=== PATIENT | female | born 2005 | race Caucasian/White ===

== ENCOUNTER 2025-03-09 16:17 | Emergency (ER) | payer MEDICAID ==
[~2025-03-09] VITALS: Ht 177.8 cm; Wt 61.0 kg
[2025-03-09 16:19] VITALS: BP 120/79; PULSE 86; RESP 16; TEMP 37.4; O2SAT 100
[2025-03-09 17:17] LABS: BASOPHILS % 0.1 % (0.0-2.0); EOSINOPHILS % 2.9 % (0.0-5.0); HEMATOCRIT. 37.7 % (36.0-48.0); HEMOGLOBIN. 12.5 g/dL (12.0-16.0); LYMPHOCYTES % 22.4 % (20.0-50.0); MEAN CORPUSCULAR HEMOGLOBIN 29.6 pg (28.0-32.0); MEAN CORPUSCULAR HGB CONC 33.2 g/dL (31.0-37.0); MEAN CORPUSCULAR VOLUME 89.2 fL (81.0-99.0); MEAN PLATELET VOLUME 7.8 fl (7.4-10.4); MONOCYTES % 6.1 % (2.0-8.0); NEUTROPHILS % 68.5 % (40.0-76.0); PLATELET 297 x1000/uL (130-400); RED BLOOD CELL COUNT 4.23 mill/uL (4.2-5.4); RED CELL DISTRIBUTION WIDTH 13.7 % (11.6-14.6)
[2025-03-09 17:19] LABS: CHLORIDE 104 mEq/L (98-107); SODIUM 139 mEq/L (136-145)
[2025-03-09 17:21] LABS: CALCIUM 9.5 mg/dL (8.7-10.4); CARBON DIOXIDE 25 mEq/L (21-32)
[2025-03-09 17:26] LABS: CREATININE 0.7 mg/dL (0.6-1.0); GLUCOSE 102 mg/dL (70-105); UREA NITROGEN BLOOD 17 mg/dL (9-23)
[2025-03-09 17:28] LABS: ALANINE AMINOTRANSFERASE 14 IU/L (10-49); ALBUMIN 4.3 g/dL (3.2-4.8); ASPARTATE AMINOTRANSFERASE 17 IU/L (<34); BILIRUBIN DIRECT 0.1 mg/dL (<=3.0); BILIRUBIN TOTAL 0.4 mg/dL (0.1-1.0); PROTEIN TOTAL 7.6 g/dL (6.0-8.3)
[2025-03-09] MEDS: HYDROCODONE/ACETAMINOPHEN 5/325MG TABLET PO ONE (17:45)
[2025-03-09 17:56] LABS: B-HCG QUANTITATIVE 98817 mIU/mL (<6)
[2025-03-09] MEDS ORDERED: TOPUD MT (21:17)
[2025-03-09] MEDS ORDERED: IBUP-1525 MT (21:17)
== END 2025-03-09 21:24 | disposition home or self-care (01) ==
LOC: ER 16:17
DX: O03.9 Complete or unspecified spontaneous abortion without complication (principal); Z3A.09 9 weeks gestation of pregnancy
CPT/HCPCS: 36415; 76801; 80048; 80076; 84702; 85025; 86850; 86900; 99284